=== PATIENT | female | born 1955 | race Hispanic/Latino ===

== ENCOUNTER 2021-12-16 14:57 | Outpatient (RCR) | payer MEDICARE | END 2021-12-18 | LOC: PT 14:57 | PROVIDERS: ATTEND Specialist | DX: S39.012D Strain of muscle, fascia and tendon of lower back, subsequent encounter (principal) ==

== ENCOUNTER 2021-12-22 13:46 | Outpatient (RCR) | payer MEDICARE | END 2022-01-17 | LOC: PT 13:46 | PROVIDERS: ATTEND Specialist | DX: S39.012D Strain of muscle, fascia and tendon of lower back, subsequent encounter (principal) ==

== ENCOUNTER 2024-07-27 18:11 | Emergency (ER) | payer MEDICARE, OTHER ==
[~2024-07-27] VITALS: Ht 152.4 cm; Wt 79.8 kg
[2024-07-27 23:30] VITALS: PULSE 76; RESP 20; TEMP 97.7
[2024-07-27 23:42] VITALS: BP 146/85; O2SAT 99
== END 2024-07-27 23:35 | disposition home or self-care (01) ==
LOC: ER 18:25
DX: S60.211A Contusion of right wrist, initial encounter (principal); S80.01XA Contusion of right knee, initial encounter; S80.211A Abrasion, right knee, initial encounter; W01.0XXA Fall on same level from slipping, tripping and stumbling without subsequent striking against object, initial encounter; Y93.01 Activity, walking, marching and hiking; Y92.89 Other specified places as the place of occurrence of the external cause; I10 Essential (primary) hypertension; E11.65 Type 2 diabetes mellitus with hyperglycemia
CPT/HCPCS: 99283